=== PATIENT | male | born 1970 | race Asian ===

== ENCOUNTER 2022-10-06 21:48 | Emergency (ER) | payer BC ==
[2022-10-06 22:46] LABS: #Basophils 0.1 10x3/uL (0.0-0.2); #Eosinphils 0.3 10x3/uL (0.0-0.5); #Monocytes 0.7 10x3/uL (0.0-1.1); #Neutrophils 5.1 10x3/uL (1.5-8.4); %Basophils 0.7 % (0.0-2.0); %Eosinophils 3.4 % (0.0-6.0); %Lymphocytes 37.1 % (18.0-47.0); %Monocytes 6.7 % (0.0-10.0); %Neutrophils 51.7 % (40.0-75.0); Hemoglobin 14.6 g/dL (13.5-17.5); Mean Corpuscular HGB CONC 34.3 g/dL (32.0-36.0); Mean Corpuscular Hemoglobin 31.5 pg (27.0-33.0); Mean Corpuscular Volume 91.8 fl (81.2-95.1); Mean Platelet Volume 10.5 fl (7.4-10.4); Platelet Count 272 10x3/uL (150-450); RBC Distribution Width 12.5 % (11.5-14.5); Red Blood Cell (RBC) Count 4.64 10x6/uL (4.32-5.72); White Blood Cell (WBC) Count 9.8 10x3/uL (3.5-10.5)
[2022-10-06 22:58] LABS: ALT (SGPT) 25 U/L (8-55); AST (SGOT) 19 U/L (5-34); Albumin 4.4 g/dL (3.5-5.0); Alkaline Phosphatase 57 U/L (40-110); Anion Gap 17 mmol/L (10-20); BUN (Urea Nitrogen) 17 mg/dL (8.4-25.7); Bilirubin, Total 0.9 mg/dL (0.2-1.2); Calc. Creatinine Clearance 0 mL/min (70-130); Calcium 9.6 mg/dL (7.8-10.44); Carbon Dioxide 24 mmol/L (22-29); Chloride 104 mmol/L (98-107); Estimated GFR 86; Globulin 2.9 g/dL (2.4-3.5); Glucose 127 mg/dL (70-105); Potassium 4.6 mmol/L (3.5-5.1); Protein, Total 7.3 g/dL (6.0-8.3); Sodium 140 mmol/L (136-145)
== END 2022-10-07 00:55 | disposition home or self-care (01) ==
LOC: CSHERS 21:48
DX: I48.91 Unspecified atrial fibrillation (principal)
CPT/HCPCS: 71045; 80053; 84443; 84484; 85025; 93005